=== PATIENT | female | born 1985 | race Caucasian/White ===

== ENCOUNTER 2018-09-10 18:44 | Emergency (ER) | payer MEDICAID ==
[~2018-09-10] VITALS: Ht 162.6 cm; Wt 74.3 kg
[~2018-09-10 18:44] MED LIST: ALBU6.7H3 IH; AZIT250T PO; BECL8.7A3 IH; PRED20TA PO
[2018-09-10] MEDS ORDERED: ipratropium/albuterol 3ml nebule NEB ONE (18:55)
[2018-09-10 18:56] VITALS: BP 107/84
[2018-09-10] MEDS ORDERED: albuterol 2.5 MG/3 ML nebule CONTNEB PRN (19:05)
== END 2018-09-10 20:31 | disposition home or self-care (01) ==
LOC: ER 18:45
DX: J45.901 Unspecified asthma with (acute) exacerbation (principal); Z79.899 Other long term (current) drug therapy
CPT/HCPCS: 94640; 94644; 94760; 99285